=== PATIENT | male | born 1975 | race Caucasian/White ===

== ENCOUNTER 2021-08-12 10:46 | Emergency (ER) | payer OTHER, SELFPAY ==
--- NOTE | 2021-08-12 10:51 | DI.RAD.S_ITS ---
PROCEDURE: XR RIBS LT MIN 3V W CXR1V INDICATIONS: pain left low ribs TECHNIQUE: 2 views of the left ribs were acquired, along with a single view chest. COMPARISON: None. FINDINGS: Surgical changes and devices: None. Bones and chest wall: No fractures or dislocations. No suspicious bony lesions. Overlying soft tissues appear unremarkable. Lungs and pleura: No pleural effusions or pneumothorax. Lungs appear clear. Mediastinum: Mediastinal contours appear normal. Heart size is normal. IMPRESSION: No evidence of rib fracture. No pneumothorax No acute cardiopulmonary findings Approved by: Zacarias Pedro M.D. on 08/12/2021 at 10:40
[2021-08-12 10:56] VITALS: BP 121/79; PULSE 76; RESP 12; TEMP 36.9; O2SAT 99; BMI 34.2
--- NOTE | 2021-08-12 11:02 | PC.NURSE ---
chest pain from fall, injury.
--- NOTE | 2021-08-12 11:04 | ED_ITS ---
HPI - Chest Pain General Chief Complaint: Chest Pain Stated Complaint: Think he broke lower left ribs Time Seen by Provider: 08/12/21 11:00 Source: patient Mode of arrival: Ambulatory Limitations: no limitations History of Present Illness HPI narrative: 46-year-old gentleman with no significant medical history was climbing up a train car 72 hours ago slipped and while still holding on with his right hand fell against the side of the train car and injured the left lower anterior ribs along the anterior axillary line. The injury was 72 hours ago. He still having some modest pain in his felt that he needed to be further evaluated. He states that he is having no shortness of breath, there is no abrasion, contusion or subcutaneous air. He is not having any difficulty with sleep once he gets own to a comfortable position but finds that he can not lay on his left side. Is having no palpitations, nausea, vomiting diarrhea or abdominal pain. Review of Systems Review of Systems Narrative: Remainder of complete review of systems is otherwise unremarkable except for that included in the HPI. Exam Initial Vital Signs Initial Vital Signs: Vital Signs Temperature 98.5 F 08/12/21 10:56 Pulse Rate 76 08/12/21 10:56 Respiratory Rate 12 08/12/21 10:56 Blood Pressure 121/79 08/12/21 10:56 Pulse Oximetry 99 08/12/21 10:56 General: Alert appropriate in no acute distress Respiratory: Able to speak in full sentences, no obvious respiratory distress Chest: No abrasions or contusions long area of interest. He is tender along the left lower ribs. There is no subcutaneous air. Abdomen: No abdominal pain, specifically no left upper quadrant pain Skin: No obvious rashes, warm and dry Neurologic: Grossly intact no obvious asymmetries or abnormalities Psych: appropriate insight and affect, cooperative Course Orders Ordered: ED Orders 08/12/21 10:51 XR ribs LT min 3V w CXR1V Stat Vital Signs Vital signs: Vital Signs - 8 hr 08/12/21 10:56 Temperature 98.5 F Pulse Rate 76 Respiratory Rate 12 Blood Pressure 121/79 Pulse Oximetry 99 MDM - Chest Pain Imaging Data Chest x-ray: My Impression: No obvious rib fractures, no hemopneumothorax, no pulmonary contusion MDM Narrative Medical decision making narrative: 46-year-old gentleman 72 hours ago slipped and hit his left anterior chest wall against the side of train really with pain to that area. He clearly has contusion without obvious fracture. 72 hours he actually is well into healing time frames and using ibuprofen once a day at most. Reassurance is given. No evidence of pneumothorax, hemothorax, subcutaneous air, splenic injury or intra- abdominal bleeding. Findings reviewed with patient and he is safe for home discharge Discharge Plan Departure Patient Disposition: Home Clinical Impression: Contusion of rib on left side Instructions: DI for Rib Contusion Activity Restrictions/Additional Instructions: Thank you for coming in today Your x-ray is reassuring. There are no obviously broken bones, no extra blood flow, fluid or air outside of your lungs. Your lung tissue itself looks nice and reassuring. Typically rib contusions can be as painful as actual fractures. Using 400 mg of ibuprofen (2 [id number] pills) and 1 Tylenol every 6 h ours can be very helpful in controlling pain. Expect to truly start feeling better at about a week and still have twinges of pain for up to 3-4 weeks. If you notice new findings or new symptoms, please feel free to return to the ER
== END 2021-08-12 11:44 | disposition home or self-care (01) ==
PROVIDERS: Emergency Provider Emergency Medicine
DX: S20.212A Contusion of left front wall of thorax, initial encounter (principal); W19.XXXA Unspecified fall, initial encounter; Y93.39 Activity, other involving climbing, rappelling and jumping off; Y92.815 Train as the place of occurrence of the external cause
CPT/HCPCS: 71101; 99283

== ENCOUNTER 2022-01-02 12:18 | Emergency (ER) | payer OTHER, SELFPAY ==
[2022-01-02 12:33] VITALS: BP 116/69; PULSE 68; RESP 16; TEMP 36.4; O2SAT 97; BMI 32.8
[2022-01-02] MEDS: TET,DIPH,PERTUSS(ACELL),VAC/PF 0.5 ML SYRINGE IM (13:32)
--- NOTE | 2022-01-02 15:23 | ED_ITS ---
HPI - Wound/Laceration <Leif Prieto PA-C - Last Filed: 01/02/22 16:29> General Chief Complaint: Wound/Laceration Stated Complaint: L pinky finger lac Time Seen by Provider: 01/02/22 13:26 Source: patient Mode of arrival: Ambulatory History of Present Illness HPI narrative: 46-year-old male with no reported past medical history presents to the ED status post an injury sustained to his left pinky finger just prior to arrival. Patient states he was working on a car, accidentally sliced his finger on a piece of metal. He did clean it out with some soap and water. Patient's last tetanus is unknown. Bleeding was controlled with pressure. Patient denies numbness, tingling, weakness. Patient endorses full range of motion. Related Data Home Medications Medication Instructions Recorded Confirmed No Known Home Medications 01/02/22 01/02/22 Allergies Allergy/AdvReac Type Severity Reaction Status Date / Time No Known Drug Allergies Allergy Verified 01/02/22 12:35 Review of Systems <Leif Prieto PA-C - Last Filed: 01/02/22 16:29> Review of Systems ROS Unobtainable: All systems reviewed & are unremarkable except as noted in HPI and below Constitutional Constitutional: Denies chills, Denies fatigue, Denies fever(s), Denies frequent falls, Denies lethargy and Denies weakness Eyes Eyes: Denies change in vision, Denies eye discharge, Denies irritation and Denies loss of vision ENT Ears, Nose, Mouth, and Throat: Denies change in voice, Denies dizziness, Denies neck pain, Denies sore throat and Denies throat swelling Cardiovascular Cardiovascular: Denies chest pain, Denies irregular heart rhythm, Denies lightheadedness, Denies palpitations, Denies dyspnea, Denies dyspnea on exertion and Denies orthopnea Respiratory Respiratory: Denies cough, Denies dyspnea, Denies dyspnea on exertion and Denies wheezing Gastrointestinal Gastrointestinal: Denies abdominal pain, Denies change in bowel habits, Denies diarrhea, Denies nausea and Denies vomiting Genitourinary Genitourinary: Denies hematuria, Denies flank pain, Denies urinary incontinence and Denies urinary urgency Musculoskeletal Musculoskeletal: Denies back pain, Denies muscle weakness, Denies neck pain, Denies numbness and Denies tingling Integumentary/Breasts Skin/Breast: Denies pruritus, Denies erythema, Denies rash and Reports wounds Neurologic Neurologic: Denies behavioral changes, Denies confusion, Denies dizziness, Denies frequent falls, Denies loss of vision, Denies numbness, Denies tingling and Denies weakness Psychiatric Psychiatric: Denies anxiety, Denies behavioral changes, Denies confusion, Denies depression, Denies homicidal ideation and Denies suicidal ideation Endocrine Endocrine: Denies fatigue, Denies flushing and Denies palpitations Hematologic/Lymphatic Hematologic/Lymphatic: Denies easy bruising Allergic/Immunologic Allergic/Immunologic: Denies urticaria, Denies throat swelling and Denies wheezing Patient History <Leif Prieto PA-C - Last Filed: 01/02/22 16:29> Social History Smoking Status: Never smoker Smoking Status: Never smoker alcohol intake frequency: holidays/special occasions only Substance Use Type: does not use Exam <Leif Prieto PA-C - Last Filed: 01/02/22 16:29> Narrative Exam Narrative: Const General:?cooperative, healthy appearing and comfortable [facility] Head:?normal to inspection Ears:?hearing grossly normal bilaterally Nose:?external nose normal Face and sinus:?normal facial exam and sinuses nontender Mouth:?oral mucosae normal Throat:?posterior oropharynx normal Eyes General:?appearance normal, both eyes and all related structures Neck Neck:?normal visual inspection and no lymphadenopathy noted Resp Effort & Inspection:?normal respiratory effort Auscultation:?clear to auscultation bilaterally Cardio Rate:?regular rate Rhythm:?regular rhythm Integumentary 1 cm linear laceration to left distal phalanx of the L pinky finger. Bleeding is controlled with pressure. Patient has full range of motion. Strength and sensation is intact. Patient is neurovascularly intact. Neuro General:?patient alert, patient awake and patient oriented x3 Initial Vital Signs Initial Vital Signs: Vital Signs Temperature 97.5 F L 01/02/22 12:33 Pulse Rate 68 01/02/22 12:33 Respiratory Rate 16 01/02/22 12:33 Blood Pressure 116/69 01/02/22 12:33 Pulse Oximetry 97 01/02/22 12:33 Oxygen Delivery Method 01/02/22 12:33 <Jocelyne Miller DO - Last Filed: 01/03/22 08:25> Initial Vital Signs Initial Vital Signs: Vital Signs Temperature 97.5 F L 01/02/22 12:33 Pulse Rate 68 01/02/22 12:33 Respiratory Rate 16 01/02/22 12:33 Blood Pressure 116/69 01/02/22 12:33 Pulse Oximetry 97 01/02/22 12:33 Oxygen Delivery Method 01/02/22 12:33 Procedures <Leif Prieto PA-C - Last Filed: 01/02/22 16:29> Laceration Repair Laceration 1: Site: hand Side (If applicable): left Size (cm): 1 Local Anesthetic: lidocaine 1% Amount of anesthesia used (mL): 2 Skin layer closed with: nylon Skin layer suture size: 5-0 Number of sutures: 3 Technique: simple, interrupted Course <Leif Prieto PA-C - Last Filed: 01/02/22 16:29> Orders Ordered: Discontinued Medications Bacitracin (Bacitracin Oint 0.9 Gm Pckt) 1 applic TOP NOW ONE Stop: 01/02/22 16:28 Diphtheria/Tetanus/Acell Pertussis (Tet,Diph,Pertuss(Acell),Vac/Pf 0.5 Ml Syringe) 0.5 ml IM .ONCE ONE Stop: 01/02/22 12:36 Last Admin: 01/02/22 13:32 Dose: 0.5 ml Documented By: BERYL Lidocaine HCl (Lidocaine 1% (Pf) 5 Ml) 5 ml INJ NOW ONE Stop: 01/02/22 15:24 Vital Signs Vital signs: Vital Signs - 8 hr 01/02/22 12:33 Temperature 97.5 F L Pulse Rate 68 Respiratory Rate 16 Blood Pressure 116/69 Pulse Oximetry 97 Oxygen Delivery Method Room Air <Jocelyne Miller DO - Last Filed: 01/03/22 08:25> Orders Ordered: Discontinued Medications Bacitracin (Bacitracin Oint 0.9 Gm Pckt) 1 applic TOP NOW ONE Stop: 01/02/22 16:28 Diphtheria/Tetanus/Acell Pertussis (Tet,Diph,Pertuss(Acell),Vac/Pf 0.5 Ml Syringe) 0.5 ml IM .ONCE ONE Stop: 01/02/22 12:36 Last Admin: 01/02/22 13:32 Dose: 0.5 ml Documented By: BERYL Lidocaine HCl (Lidocaine 1% (Pf) 5 Ml) 5 ml INJ NOW ONE Stop: 01/02/22 15:24 Vital Signs Vital signs: Vital Signs - 8 hr 01/02/22 12:33 Temperature 97.5 F L Pulse Rate 68 Respiratory Rate 16 Blood Pressure 116/69 Pulse Oximetry 97 Oxygen Delivery Method Room Air MDM - Wound/Laceration <Leif Prieto PA-C - Last Filed: 01/02/22 16:29> MDM Narrative Medical decision making narrative: 46-year-old male with no reported past medical history presents to the ED status post an injury sustained to his left pinky finger just prior to arrival. Mechanism of injury does not support a fracture/dislocation/foreign body. No imaging indicated at this time. Will repair laceration with sutures. Will discharge home with wound care instructions, signs of infection, ED return precautions. Discharge Plan Departure Patient Disposition: Home Clinical Impression: Laceration Instructions: DI for Laceration Repair Activity Restrictions/Additional Instructions: You were evaluated in the ED today for a laceration sustained to your left pinky finger. Your laceration was repaired with 3 sutures. The sutures will need to be removed in 7-10 days. You may go to an urgent care, your PCP or return to the ED for suture removal. Please watch for signs of infection including redness, swelling, pain, warmth, discharge. If you notice any signs of infection, please return to the ED. Your tetanus was updated today. Prescriptions: No Action No Known Home Medications Stand Alone Forms: Work Release Note Visit Report Forms: Patient Portal/API <Jocelyne Miller DO - Last Filed: 01/03/22 08:25> Cosign ED Attending Liseth Attestation: I was immediately available in the department for consultation. Documentation has been reviewed. I agree with assessment and plan.
== END 2022-01-02 15:50 | disposition home or self-care (01) ==
PROVIDERS: Emergency Provider Student in an Organized Health Care Education/Training Program
DX: S61.217A Laceration without foreign body of left little finger without damage to nail, initial encounter (principal); W26.9XXA Contact with unspecified sharp object(s), initial encounter; Z23 Encounter for immunization
CPT/HCPCS: 90471; 99283; 90715